=== PATIENT | male | born 1965 | race Caucasian/White ===

== ENCOUNTER 2018-12-27 00:40 | Emergency (ER) | payer OTHER ==
--- NOTE | 2018-12-27 00:44 | ER Report ---
History and Physical Time Seen By MD: 00:40 HPI/ROS CHIEF COMPLAINT: Left flank pain HISTORY OF PRESENT ILLNESS: 53-year-old male presents with left flank pain for several hours. Patient drove up from [place] to be with his w dexter in [place], who staying with her daughter. Patient developed left flank pain. He said severe nausea. Patient has a history of numerous kidney stones left one required lithotripsy. It was a proximally 1 year ago. Patient notes the pain comes in waves. Currently, he is a 3 out of 10. Patient thinks he may have passed the stone. His pain is gone down significantly. REVIEW OF SYSTEMS: Respiratory: No cough, no dyspnea. Cardiovascular: No chest pain, no palpitations. Gastrointestinal: As above Musculoskeletal: As above Allergies: Coded Allergies: No Known Drug Allergies (Unverified , 12/27/18) Home Meds Reported Medications Albuterol Sulfate (VENTOLIN HFA) 18 Gm Inh, 1-2 PUFF INH 3-4XD, INH 12/27/18 Sertraline Hcl (ZOLOFT) 50 Mg Tablet, 1 TAB PO QDAY, TAB 12/27/18 Reviewed Nurses Notes: Yes Old Medical Records Reviewed: Yes Constitutional Vital Sign - Last 24 Hours 12/27/18 12/27/18 12/27/18 12/27/18 00:42 00:45 00:55 01:00 Temp 97.5 Pulse 74 75 Resp 20 B/P (MAP) 164/112 (129) 164/112 149/109 (122) Pulse Ox 96 O2 Delivery Room Air 12/27/18 12/27/18 12/27/18 12/27/18 01:21 01:30 01:40 01:45 Pulse 77 B/P (MAP) 135/97 (110) 147/95 (112) Pulse Ox 92 100 Intake and Output 12/26/18 12/26/18 12/27/18 15:03 23:03 07:03 Intake Total 1000 ml Balance 1000 ml Physical Exam General Appearance: The patient is alert, has no immediate need for airway protection and no current signs of toxicity. Vital signs stable, blood pressure elevated, afebrile, pale, warm, dry skin Eyes: Pupils equal and round no injection. Respiratory: Chest is non tender, lungs are clear to auscultation. Cardiac: regular rate and rhythm Gastrointestinal: Abdomen is soft and non tender, no masses, bowel sounds normal.+ Left CVA tenderness Musculoskeletal: Neck: Neck is supple and non tender. Extremities have full range of motion and are non tender. Skin: No rashes or lesions. DIFFERENTIAL DIAGNOSIS: After history and physical exam differential diagnosis was considered for flank pain including but not limited to musculoskeletal causes, kidney stone, pyelonephritis, shingles, and intra-abdominal causes such as diverticulitis and appendicitis. Medical Decision Making Data Points Result Diagram: 12/27/18 01012/27/18 0100 Laboratory Hematology Test 12/27/18 01:00 White Blood Count 7.0 k/uL (4.5-11.0) Red Blood Count 5.29 M/uL (4.00-5.60) Hemoglobin 15.6 g/dL (14.0-18.0) Hematocrit 44.7 % (42.0-52.0) Mean Corpuscular Volume 84.5 fL (80.0-96.0) Mean Corpuscular Hemoglobin 29.4 pg (26.0-33.0) Mean Corpuscular Hemoglobin Concent 34.8 g/dL (32.0-36.0) Red Cell Distribution Width 13.3 % (11.5-14.5) Platelet Count 204 K/uL (150-450) Mean Platelet Volume 9.0 fL (7.2-11.1) Neutrophils (%) (Auto) 54.3 % (39.4-72.5) Lymphocytes (%) (Auto) 32.1 % (17.6-49.6) Monocytes (%) (Auto) 10.5 % (4.1-12.4) Eosinophils (%) (Auto) 2.5 % (0.4-6.7) Basophils (%) (Auto) 0.6 % (0.3-1.4) Nucleated RBC Relative Count (auto) 0.1 /100WBC Neutrophils # (Auto) 3.8 K/uL (2.0-7.4) Lymphocytes # (Auto) 2.2 K/uL (1.3-3.6) Monocytes # (Auto) 0.7 K/uL (0.3-1.0) Eosinophils # (Auto) 0.2 K/uL (0.0-0.5) Basophils # (Auto) 0.0 K/uL (0.0-0.1) Nucleated RBC Absolute Count (auto) 0.01 K/uL Chemistry Test 12/27/18 01:00 Sodium Level 139 mmol/L (137-145) Potassium Level 3.8 mmol/L (3.5-5.0) Chloride Level 106 mmol/L (98-107) Carbon Dioxide Level 23 mmol/L (22-30) Blood Urea Nitrogen 18 mg/dl (9-21) Creatinine 1.00 mg/dl (0.66-1.25) Glomerular Filtration Rate Calc > 60.0 Random Glucose 101 mg/dl (75-110) Calcium Level 8.7 mg/dl (8.4-10.2) Total Bilirubin 0.6 mg/dl (0.2-1.3) Aspartate Amino Transf (AST/SGOT) 31 U/L (0-35) Alanine Aminotransferase (ALT/SGPT) 60 U/L (0-56) Alkaline Phosphatase 72 U/L (0-126) Total Protein 7.0 g/dl (6.3-8.2) Albumin 4.1 g/dl (3.5-5.0) Amylase Level 62 U/L (0-110) Lipase 70 U/L (23-300) EKG/Imaging Imaging Results: CT scan of the abdomen and pelvis without contrast was obtained. The results of the study are COMPUTED TOMOGRAPHY ABDOMEN AND PELVIS WITHOUT INTRAVENOUS CONTRAST DATE OF EXAM: 12/27/2018 12:50 AM INDICATION: Left flank pain, history of kidney stones. COMPARISON: None. TECHNIQUE: Noncontrast abdomen and pelvis CT performed. Sagittal and coronal reconstructions were performed. One of the following dose optimization techniques was utilized in the performance of this exam: Automated exposure control; adjustment of the mA and/or kV according to the patient's size; or use of an iterative reconstruction technique. Specific details can be referenced in the facility's radiology CT exam operational policy. FINDINGS: Lung bases: Clear. Liver: Liver parenchyma is mildly hypoattenuating. No acute abnormality or suspicious lesion. Gallbladder and bile ducts: Normal. Spleen: Normal. Pancreas: Normal. Adrenals: Normal. Kidneys, ureters and bladder: 3 mm calculus at the left ureterovesicular ju nction. Minimal left hydroureter/hydronephrosis. Additional 4 mm nonobstructing calculus in the inferior pole of the left kidney. The right kidney and ureter are normal. Retroperitoneum and aorta: Nonaneurysmal aorta. No adenopathy. GI tract, mesentery and peritoneum: Nonacute. Normal appendix. Mild sigmoid diverticulosis. Prostate and seminal vesicles: Normal. Bones and soft tissues: No acute abnormality or suspicious lesion. Mild rectus diastasis. Small fat-containing umbilical and left inguinal hernias. IMPRESSION: 1. 3 mm calculus at the left ureterovesicular junction. Minimal left hydroureter/hydronephrosis. 2. Additional 4 mm nonobstructing calculus in the inferior pole of the left kidney. 3. Mildly hypoattenuating liver parenchyma could indicate steatosis. 4. Mild colonic diverticulosis. The study was read by the radiologist. I viewed the images myself on the PACS system. ED Course/Re-evaluation Clinical Indication for ER IV: Hydration, IV Access ED Course Patient was admitted to an examination room. H&P was done. The differential diagnoses was considered. Patient with left flank pain and a history of kidney stones. Patient was treated with IV fluids, Zofran, Toradol 30 motor grams IV. Patient thinks he passed a stone. His pain is gone down significantly. A CT s can was performed. It showing left hydronephrosis and a stone at the UVJ. Patient has residual 4 mm stone. He is offered pain medication and nausea medicine, but declines. Patient advised to return to the ER for any worsening. Patient's advised to follow-up with his primary care in [facility] as well as his urologist at [facility] [place]. Decision to Disposition Date: Dec 27, 2018 Decision to Disposition Time: 01:29 Depart Departure Latest Vital Signs Vital Signs Date Time Temp Pulse Resp B/P (MAP) Pulse Ox O2 Delivery O2 Flow Rate FiO2 12/27/18 01:45 100 12/27/18 01:40 77 12/27/18 01:30 147/95 (112) 12/27/18 00:45 97.5 20 Room Air Impression: Primary Impression: Renal colic on left side Additional Impression: History of kidney stones Condition: Improved Disposition: HOME OR SELF-CARE Patient Instructions: Kidney Stones (ED) Additional Instructions: Follow-up with your primary care doctor or urologist in [place] Problem Qualifiers KRISTEL RAINEY DO Dec 27, 2018 00:44
[2018-12-27] MEDS ORDERED: SERT-1 PO (00:47)
[2018-12-27] MEDS ORDERED: ALB18R INH (00:47)
[2018-12-27] MEDS ORDERED: HYDROMORPHONE HCL 1 MG/ML SYRINGE IVP ONE (00:50)
[2018-12-27] MEDS ORDERED: KETOROLAC 30 MG/ML VIAL IVP ONE (00:50)
[2018-12-27] MEDS ORDERED: ONDANSETRON 4 MG/2 ML VIAL IVP ONE (00:50)
[2018-12-27] MEDS ORDERED: NS(*) 0.9% 1000 ML BAG 1,000 ML IV ONE (00:50)
[2018-12-27 01:24] LABS: PLATELET COUNT, AUTOMATED 204 K/uL (150-450)
[2018-12-27 01:30] VITALS: BP 147/95
--- NOTE | 2018-12-27 01:50 | RADIOLOGY IMAGING REPORT ---
FACILITY: [facility] PATIENT NAME: Jarrett Osborne : 1965 MR: [id number] V: [id number] EXAM DATE: ORDERING PHYSICIAN: KRISTEL RAINEY TECHNOLOG[place] [facility] [place] : 1965 Visit/Account:[id number] Date of Sevice: 12/27/2018 COMPUTED TOMOGRAPHY ABDOMEN AND PELVIS WITHOUT INTRAVENOUS CONTRAST DATE OF EXAM: 12/27/2018 12:50 AM INDICATION: Left flank pain, history of kidney stones. COMPARISON: None. TECHNIQUE: Noncontrast abdomen and pelvis CT performed. Sagittal and coronal reconstructions were pe rformed. One of the following dose optimization techniques was utilized in the performance of this e xam: Automated exposure control; adjustment of the mA and/or kV according to the patient's size; or u se of an iterative reconstruction technique. Specific details can be referenced in the facility's r adiology CT exam operational policy. FINDINGS: Lung bases: Clear. Liver: Liver parenchyma is mildly hypoattenuating. No acute abnormality or suspicious lesion. Gallbladder and bile ducts: Normal. Spleen: Normal. Pancreas: Normal. Adrenals: Normal. Kidneys, ureters and bladder: 3 mm calculus at the left ureterovesicular junction. Minimal left hyd roureter/hydronephrosis. Additional 4 mm nonobstructing calculus in the inferior pole of the left ki dney. The right kidney and ureter are normal. Retroperitoneum and aorta: Nonaneurysmal aorta. No adenopathy. GI tract, mesentery and peritoneum: Nonacute. Normal appendix. Mild sigmoid diverticulosis. Prostate and seminal vesicles: Normal. Bones and soft tissues: No acute abnormality or suspicious lesion. Mild rectus diastasis. Small fa t-containing umbilical and left inguinal hernias. IMPRESSION: 1. 3 mm calculus at the left ureterovesicular junction. Minimal left hydroureter/hydronephrosis. 2. Additional 4 mm nonobstructing calculus in the inferior pole of the left kidney. 3. Mildly hypoattenuating liver parenchyma could indicate steatosis. 4. Mild colonic diverticulosis. Report Dictated By: Parth Olivia MD at 12/27/2018 1:34 AM Report E-Signed By: Parth Olivia MD at 12/27/2018 1:42 AM WSN:[id number]
== END 2018-12-27 02:00 | disposition home or self-care (01) ==
LOC: ER 01:10
DX: N13.2 Hydronephrosis with renal and ureteral calculous obstruction (principal); Z87.442 Personal history of urinary calculi
CPT/HCPCS: 74176; 82150; 83690; 85025; 96361; 96374; 96375; 99284; J1885; J2405; J7030; 82040; 82247; 82310; 82374; 82435; 82565; 82947; 84075; 84132; 84155; 84295; 84450; 84460; 84520